=== PATIENT | female | born 1960 | race Caucasian/White ===

== ENCOUNTER → 2021-05-26 | Outpatient (CLI) | payer MEDICARE, OTHER | LOC: MRI 04-28 14:00 | DX: I63.9 Cerebral infarction, unspecified (principal); I65.29 Occlusion and stenosis of unspecified carotid artery; I62.9 Nontraumatic intracranial hemorrhage, unspecified; G83.31 Monoplegia, unspecified affecting right dominant side; I10 Essential (primary) hypertension; G93.89 Other specified disorders of brain; Z91.81 History of falling | CPT/HCPCS: 70551 ==